=== PATIENT | male | born 1985 | race Caucasian/White ===

== ENCOUNTER 2018-01-18 21:08 | Observation (INO) | payer OTHER ==
[2018-01-18] MEDS ORDERED: Iohexol 240 (50 ml) PO ONE (21:52)
[2018-01-18] MEDS ORDERED: Sodium Chloride 0.9% 1,000 ML IV STA (21:52)
--- NOTE | 2018-01-18 22:18 | ED PDOC ---
HPI: General Adult Time Seen by Provider: 01/18/18 21:28 Chief Complaint (Nursing): GI Problem History Per: Patient History/Exam Limitations: no limitations Onset/Duration Of Symptoms: Days Additional Complaint(s): Obese M with no PMHx presenting with pain to R buttock x 2 days, states he cannot lie on it, denies having abscess in the past, denies trauma. States he felt warm today and had a fever of 101.7. States he also has L sided mid-back/ "kidney" pain but denies urinary symptoms, states he's had it for months and has had negative workup in the past. Past Medical History Reviewed: Historical Data, Nursing Documentation, Vital Signs Vital Signs: Last Vital Signs Temp 98.8 F 01/18/18 21:18 Pulse 128 H 01/18/18 21:18 Resp 18 01/18/18 21:18 BP 132/91 H 01/18/18 21:18 Pulse Ox 99 01/19/18 06:26 - Medical History PMH: No Chronic Diseases - Family History Family History: States: Unknown Family Hx - Allergies Allergies/Adverse Reactions: Allergies Allergy/AdvReac Type Severity Reaction Status Date / Time No Known Allergies Allergy Verified 01/18/18 21:17 Review of Systems ROS Statement: Except As Marked, All Systems Reviewed And Found Negative Constitutional: Positive for: Fever, Chills, Sweats Gastrointestinal: Positive for: Abdominal Pain Physical Exam - Reviewed Nursing Documentation Reviewed: Yes Vital Signs Reviewed: Yes - Physical Exam Appears: Positive for: Well, Non-toxic, Uncomfortable (Sweating) Head Exam: Positive for: ATRAUMATIC, NORMAL INSPECTION, NORMOCEPHALIC Skin: Positive for: Warm. Negative for: Normal Color (R buttock has hardened skin but no erythema, no fluctuance, questionable induration, spans inner lining of buttock to mid-inner buttock on the R) Eye Exam: Positive for: EOMI, Normal appearance, PERRL ENT: Positive for: Normal ENT Inspection Neck: Positive for: Normal, Painless ROM Cardiovascular/Chest: Positive for: Tachycardia Respiratory: Positive for: CNT, Normal Breath Sounds Gastrointestinal/Abdominal: Positive for: Normal Exam, Soft. Negative for: Tenderness, Distended, Guarding Back: Positive for: Normal Inspection, Muscle Spasm (Of left mid-back, paravertebral). Negative for: L CVA Tenderness, R CVA Tenderness Extremity: Positive for: Normal ROM Neurologic/Psych: Positive for: Alert, Oriented - Laboratory Results Result Diagrams: 01/18/18 22:25 01/18/18 22:25 - ECG O2 Sat by Pulse Oximetry: 99 Pulse Ox Interpretation: Normal Medical Decision Making Medical Decision Makin:00 A/P: Obese M presenting with two complaints: buttock pain and persistent L upper -mid back pain -more concerned about buttock pain, unclear if abscess or not, and if so, possible rectal involvement, will get CT with oral and IV contrast -back pain is more likely muscular in nature -patient tachycardic, likely febrile -will get labs, fluids, toradol, and re-eval 02:54 EXAM: CT Abdomen and Pelvis With Intravenous Contrast CLINICAL HISTORY: 32 years old, male; Pain; Other: L flank pain. Rt buttock swelling; Prior surgery; Surgery date: 6+ months; Surgery type: Gallbladder removed; Additional info: L flank pain and r buttock swelling/pain TECHNIQUE: Axial computed tomography images of the abdomen and pelvis with intravenous contrast. All CT scans at this facility use one or more dose reduction techniques, viz.: automated exposure control; ma/kV adjustment per patient size (including targeted exams where dose is matched to indication; i.e. head); or iterative reconstruction technique. Coronal and sagittal reformatted images were created and reviewed. CONTRAST: 98 mL of OMNIPAQUE-300 administered intravenously. COMPARISON: No relevant prior studies available. FINDINGS: Lung bases: No acute findings. Mediastinum: Small hiatal hernia. ABDOMEN: Liver: Fatty infiltration. Few < 0.5 cm lesions. Gallbladder and bile ducts: Cholecystectomy. No significant ductal dilation. Pancreas: No ductal dilation. No mass. Spleen: No splenomegaly. Adrenals: No mass. Kidneys and ureters: No mass. No hydronephrosis. Stomach and bowel: No definite mural thickening. No obstruction. PELVIS: Appendix: Normal caliber. No inflammation. Bladder: Unremarkable. Reproductive: Unremarkable as visualized. ABDOMEN and PELVIS: Intraperitoneal space: No significant fluid collection. No free air. Bones/joints: No acute fracture. Soft tissues: 5.1 x 3.8 x 4.0 cm poorly defined lobulated fluid collection with minimal peripheral enhancement within right perineum adjacent to anus. Mild stranding within adjacent fat. Vasculature: Unremarkable. No aneurysm. Lymph nodes: No pathologically enlarged lymph nodes. IMPRESSION: 1. Findings compatible with right perianal phlegmon/early abscess. Clinical correlation is needed. 2. Liver lesions. For patients with low to average risk of malignancy, no further follow-up is necessary. For patients with high risk of malignancy (known malignancy that can metastasize or other risk factors), recommend follow-up abdominal CT or MR in 6 months. 3. Incidental/non-acute findings are described above. Thank you for allowing us to participate in the care of your patient. Dictated and Authenticated by: Kenneth Kuhn MD 01/19/2018 2:43 AM Eastern Time ([place] & [place]) Patient evaluated by surgery, agrees to admission for ABx and possible wash out in OR. Patient feeling some relief but still having pain. Disposition - Clinical Impression Clinical Impression: Abscess - Patient ED Disposition Is Patient to be Admitted: Yes - Disposition Disposition Time: 04:00 Condition: IMPROVED
[2018-01-18 22:43] LABS: BASO # 0.1 K/uL (0.0-0.2); BASO % 0.5 % (0.0-2.0); EOS % 0.2 % (0.0-4.0); HEMOGLOBIN 13.8 g/dL (12.0-18.0); LYMPH # 2.5 K/uL (1.0-4.3); LYMPH % 14.7 % (20.0-40.0); MEAN CELL VOLUME 83.3 fl (80.0-94.0); MEAN CORPUSCULAR HEMOGLOBIN 27.6 pg (27.0-31.0); MEAN CORPUSCULAR HGB CONC 33.2 g/dL (33.0-37.0); MEAN PLATELET VOLUME 8.4 fl (7.2-11.7); MONO % 5.9 % (0.0-10.0); NEUT # 13.2 K/uL (1.8-7.0); NEUT % 78.7 % (50.0-75.0); RBC 5.01 Mil/uL (4.40-5.90); RED CELL DISTRIBUTION WIDTH 13.9 % (11.5-14.5); WHITE BLOOD COUNT 16.8 K/uL (4.8-10.8)
[2018-01-18] MEDS ORDERED: Iohexol 240 (50 ml) ONE (22:49)
[2018-01-18 23:08] LABS: BLOOD UREA NITROGEN 14 mg/dl (9-20); CALCIUM 9.4 mg/dL (8.4-10.2); GFR AFRICAN-AMERICAN > 60; GFR NON-AFRICAN AMERICAN > 60
[2018-01-19] MEDS ORDERED: Iohexol 300 100 ML IJ ONE (01:48)
--- NOTE | 2018-01-19 02:44 | CT ---
EXAM: CT Abdomen and Pelvis With Intravenous Contrast CLINICAL HISTORY: 32 years old, male; Pain; Other: L flank pain. Rt buttock swelling; Prior surgery; Surgery date: 6+ months; Surgery type: Gallbladder removed; Additional info: L flank pain and r buttock swelling/pain TECHNIQUE: Axial computed tomography images of the abdomen and pelvis with intravenous contrast. All CT scans at this facility use one or more dose reduction techniques, viz.: automated exposure control; ma/kV adjustment per patient size (including targeted exams where dose is matched to indication; i.e. head); or iterative reconstruction technique. Coronal and sagittal reformatted images were created and reviewed. CONTRAST: 98 mL of OMNIPAQUE-300 administered intravenously. COMPARISON: No relevant prior studies available. FINDINGS: Lung bases: No acute findings. Mediastinum: Small hiatal hernia. ABDOMEN: Liver: Fatty infiltration. Few < 0.5 cm lesions. Gallbladder and bile ducts: Cholecystectomy. No significant ductal dilation. Pancreas: No ductal dilation. No mass. Spleen: No splenomegaly. Adrenals: No mass. Kidneys and ureters: No mass. No hydronephrosis. Stomach and bowel: No definite mural thickening. No obstruction. PELVIS: Appendix: Normal caliber. No inflammation. Bladder: Unremarkable. Reproductive: Unremarkable as visualized. ABDOMEN and PELVIS: Intraperitoneal space: No significant fluid collection. No free air. Bones/joints: No acute fracture. Soft tissues: 5.1 x 3.8 x 4.0 cm poorly defined lobulated fluid collection with minimal peripheral enhancement within right perineum adjacent to anus. Mild stranding within adjacent fat. Vasculature: Unremarkable. No aneurysm. Lymph nodes: No pathologically enlarged lymph nodes. IMPRESSION: 1. Findings compatible with right perianal phlegmon/early abscess. Clinical correlation is needed. 2. Liver lesions. For patients with low to average risk of malignancy, no further follow-up is necessary. For patients with high risk of malignancy (known malignancy that can metastasize or other risk factors), recommend follow-up abdominal CT or MR in 6 months. 3. Incidental/non-acute findings are described above.
[2018-01-19 04:18] LABS: URINE BILIRUBIN NEGATIVE (NEGATIVE); URINE BLOOD NEGATIVE (NEGATIVE); URINE CLARITY CLEAR (Clear); URINE COLOR YELLOW (YELLOW); URINE GLUCOSE (UA) NEG (Normal); URINE LEUKOCYTE ESTERASE NEG Leu/uL (Negative); URINE PROTEIN NEGATIVE (NEGATIVE); URINE UROBILINOGEN 0.2-1.0 mg/dL (0.2-1.0)
--- NOTE | 2018-01-19 05:49 | CP.PCM.HP ---
History of Present Illness - History of Present Illness History of Present Illness: General Surgery H&P for Dr. Varma This is a morbidly obese 32M with no PMH and a PSH of lap sidney who presents with right sided anal/gluteal pain at home when he sits since however since that time that pain has gotten worse. He reports that he felt a lump when palpating his anus. He denies any discharge per rectum. This is the first time it has happened, nothing makes it better and nothing makes it worse. He reports a fever yesterday of 101.[address] in the ED shows a right sided perianal early abscess. PMH: none PSH: lap sidney ALL: nkda Social: denies tobacco, etoh or drugs Present on Admission - Present on Admission Any Indicators Present on Admission: No Review of Systems - Review of Systems All systems: reviewed and no additional remarkable complaints except - Constitutional Constitutional: Fever - Cardiovascular Cardiovascular: absent: Chest Pain, Dyspnea - Respiratory Respiratory: absent: Dyspnea, Dyspnea on Exertion - Gastrointestinal Gastrointestinal: Loose Stools. absent: Hematochezia, Melena, Nausea, Temesmus - Genitourinary Genitourinary: absent: Difficulty Urinating, Dysuria Past Patient History - Past Social History Smoking Status: Never Smoked - PSYCHIATRIC Hx Substance Use: No Meds Allergies/Adverse Reactions: Allergies Allergy/AdvReac Type Severity Reaction Status Date / Time No Known Allergies Allergy Verified 01/18/18 21:17 Physical Exam - Constitutional Appears: Non-toxic, No Acute Distress - Head Exam Head Exam: ATRAUMATIC, NORMOCEPHALIC - Eye Exam Eye Exam: EOMI, Normal appearance - ENT Exam ENT Exam: Mucous Membranes Moist, Normal Exam - Respiratory Exam Respiratory Exam: NORMAL BREATHING PATTERN - Cardiovascular Exam Cardiovascular Exam: REGULAR RHYTHM - GI/Abdominal Exam GI & Abdominal Exam: Soft. absent: Distended, Guarding, Hernia, Rebound, Rigid - Rectal Exam Rectal Exam: NORMAL INSPECTION Additional comments: Normal rectal exam with slight right sided firmness in the gluteal cleft without overlaying skin changes - Neurological Exam Neurological exam: Alert, Oriented x3 - Skin Skin Exam: Dry, Intact Results - Vital Signs Recent Vital Signs: Last Vital Signs Temp 98.8 F 01/18/18 21:18 Pulse 128 H 01/18/18 21:18 Resp 18 01/18/18 21:18 BP 132/91 H 01/18/18 21:18 Pulse Ox 99 01/18/18 22:23 - Labs Result Diagrams: 01/18/18 22:25 01/18/18 22:25 Labs: Laboratory Results - last 24 hr 01/18/18 01/18/18 01/18/18 22:25 22:25 22:25 WBC 16.8 H RBC 5.01 Hgb 13.8 Hct 41.7 MCV 83.3 MCH 27.6 MCHC 33.2 RDW 13.9 Plt Count 329 MPV 8.4 Neut % (Auto) 78.7 H Lymph % (Auto) 14.7 L [place] % (Auto) 5.9 Eos % (Auto) 0.2 Baso % (Auto) 0.5 Neut # (Auto) 13.2 H Lymph # (Auto) 2.5 [place] # (Auto) 1.0 H Eos # (Auto) 0.0 Baso # (Auto) 0.1 Sodium 142 Potassium 4.2 Chloride 98 Carbon Dioxide 26 Anion Gap 22 H BUN 14 Creatinine 1.1 Est GFR ( Amer) > 60 Est GFR (Non-Af Amer) > 60 Random Glucose 101 Lactic Acid 1.5 Calcium 9.4 Urine Color Urine Clarity Urine pH Ur Specific [place] Urine Protein Urine Glucose (UA) Urine Ketones Urine Blood Urine Nitrate Urine Bilirubin Urine Urobilinogen Ur Leukocyte Esterase Urine RBC (Auto) Urine Microscopic WBC 01/19/18 04:11 WBC RBC Hgb Hct MCV MCH MCHC RDW Plt Count MPV Neut % (Auto) Lymph % (Auto) [place] % (Auto) Eos % (Auto) Baso % (Auto) Neut # (Auto) Lymph # (Auto) [place] # (Auto) Eos # (Auto) Baso # (Auto) Sodium Potassium Chloride Carbon Dioxide Anion Gap BUN Creatinine Est GFR ( Amer) Est GFR (Non-Af Amer) Random Glucose Lactic Acid Calcium Urine Color Yellow Urine Clarity Clear Urine pH 6.0 Ur Specific [place] > 1.060 H Urine Protein Negative Urine Glucose (UA) Neg Urine Ketones Negative Urine Blood Negative Urine Nitrate Negative Urine Bilirubin Negative Urine Urobilinogen 0.2-1.0 Ur Leukocyte Esterase Neg Urine RBC (Auto) 1 Urine Microscopic WBC 1 Assessment & Plan - Assessment and Plan (Free Text) Assessment: 32M with early perianal abscess Admit to surgical service for 24 observation NPO IV ABX SCD D/W Dr. Avani Soto PGY2
[2018-01-19] MEDS ORDERED: Dextrose 5%/0.45% NS 1,000 ML IV SCH (06:00)
[2018-01-19 07:40] LABS: INR 1.3 (0.9-1.2); PROTHROMBIN TIME 13.9 Seconds (9.8-13.1)
[2018-01-19] MEDS ORDERED: Piperacillin/Tazobact 3.375 GM in Sodium Chloride 0.9% 100 ML IVPB SCH (09:00)
[2018-01-19] MEDS: Piperacillin/Tazobact 3.375 GM in Sodium Chloride 0.9% 100 ML IVPB SCH ×3 (10:18→21:03)
[2018-01-19] MEDS: Sodium Chloride 0.9% 1,000 ML IV SCH ×2 (10:19→23:35)
[2018-01-20] MEDS: Piperacillin/Tazobact 3.375 GM in Sodium Chloride 0.9% 100 ML IVPB SCH ×5 (03:34→21:44)
[2018-01-20] MEDS: Sodium Chloride 0.9% 1,000 ML IV SCH ×3 (06:57→08:17)
[2018-01-20 08:25] LABS: BASO # 0.1 K/uL (0.0-0.2); BASO % 0.8 % (0.0-2.0); EOS % 0.3 % (0.0-4.0); HEMOGLOBIN 12.7 g/dL (12.0-18.0); LYMPH # 2.4 K/uL (1.0-4.3); LYMPH % 16.3 % (20.0-40.0); MEAN CELL VOLUME 82.6 fl (80.0-94.0); MEAN CORPUSCULAR HEMOGLOBIN 27.7 pg (27.0-31.0); MEAN CORPUSCULAR HGB CONC 33.5 g/dL (33.0-37.0); MEAN PLATELET VOLUME 7.9 fl (7.2-11.7); MONO # 1.2 K/uL (0.0-0.8); MONO % 8.3 % (0.0-10.0); NEUT # 10.7 K/uL (1.8-7.0); NEUT % 74.3 % (50.0-75.0); NRBC % 0.1 % (0.0-0.0); RBC 4.59 Mil/uL (4.40-5.90); RED CELL DISTRIBUTION WIDTH 13.9 % (11.5-14.5); WHITE BLOOD COUNT 14.4 K/uL (4.8-10.8)
[2018-01-20 13:51] LABS: ALB/GLOB RATIO 0.9 (1.0-2.1); ALT/SGPT 98 U/L (21-72); AST/SGOT 49 U/L (17-59); BLOOD UREA NITROGEN 9 mg/dl (9-20); CALCIUM 9.3 mg/dL (8.4-10.2); GFR AFRICAN-AMERICAN > 60; GFR NON-AFRICAN AMERICAN > 60
[2018-01-20] MEDS ORDERED: Lactated Ringer's 1,000 ML IV ONE ×2 (14:00→15:53)
[2018-01-20] MEDS ORDERED: Lidocaine 2% Inj (20ml) ONE (14:18)
[2018-01-20] MEDS ORDERED: Chlorhexidine Gluconate 2OZ GEL TP ONE (14:27)
[2018-01-20] MEDS: Bupivacaine 0.5% Inj(30mL) ONE ×2 (14:35→16:15)
[2018-01-20] MEDS: Lidocaine 2% w Epi 1:100,000 Inj IJ ONE ×2 (14:35→16:15)
[2018-01-20] MEDS ORDERED: Propofol 10 mg/ml Inj (20 ML) ONE (15:45)
[2018-01-20] MEDS ORDERED: Methylene Blue 10 mg/mL(10ml) IV ONE (15:45)
[2018-01-20] MEDS ORDERED: Succinylcholine 200 mg/10 ml Inj IV ONE (15:46)
[2018-01-20] MEDS ORDERED: Lidocaine 4% (Laryng-O-Jet) Kit MM ONE (15:46)
[2018-01-20] MEDS ORDERED: Midazolam 2 MG/2 ML VIAL ONE (15:58)
[2018-01-20] MEDS ORDERED: Rocuronium 10 mg/ml (5 ml) ONE (16:10)
[2018-01-20] MEDS ORDERED: Sevoflurane - Inhalation Anesthetic Liq (250 ml) ONE (16:26)
--- NOTE | 2018-01-20 16:52 | PCM.SURG1 ---
Surgeon's Initial Post Op Note - Surgeon's Notes Surgeon: Dr. Varma Collections Technician: Jluis PGY2, Ethan PGY1 Type of Anesthesia: General Endo, Local Anesthesia Administered By: Dr. Szymanski Pre-Operative Diagnosis: Perianal abscess Operative Findings: Perianal abscess Post-Operative Diagnosis: Perianal abscess Operation Performed: Incision & Drainage of perianal abscess with irrigation and packing Specimen/Specimens Removed: abscess culture Estimated Blood Loss: EBL {In ML}: 20 Blood Products Given: N/A Drains Used: No Drains Post-Op Condition: Good Date of Surgery/Procedure: 01/20/18 Time of Surgery/Procedure: 04:00
[2018-01-20] MEDS ORDERED: HYDROmorphone 0.5 mg/0.5 ml ISec IVP PRN (16:55)
[2018-01-20] MEDS: Lactated Ringer's 1,000 ML IV SCH (23:58)
[2018-01-21] MEDS: Lactated Ringer's 1,000 ML IV SCH ×2 (03:39→13:04)
[2018-01-21] MEDS: Piperacillin/Tazobact 3.375 GM in Sodium Chloride 0.9% 100 ML IVPB SCH ×2 (03:40→09:07)
[2018-01-21 05:16] VITALS: TEMP 98.7
[2018-01-21 07:47] VITALS: BP 137/78; PULSE 88; RESP 20; O2SAT 97
[2018-01-21 11:39] LABS: BASO # 0.1 K/uL (0.0-0.2); BASO % 0.5 % (0.0-2.0); EOS # 0.1 K/uL (0.0-0.7); EOS % 0.4 % (0.0-4.0); LYMPH # 2.3 K/uL (1.0-4.3); LYMPH % 17.3 % (20.0-40.0); MEAN CELL VOLUME 82.9 fl (80.0-94.0); MEAN CORPUSCULAR HEMOGLOBIN 27.6 pg (27.0-31.0); MEAN CORPUSCULAR HGB CONC 33.3 g/dL (33.0-37.0); MEAN PLATELET VOLUME 7.9 fl (7.2-11.7); MONO % 7.6 % (0.0-10.0); NEUT # 9.6 K/uL (1.8-7.0); NEUT % 74.2 % (50.0-75.0); RBC 4.73 Mil/uL (4.40-5.90); RED CELL DISTRIBUTION WIDTH 14.1 % (11.5-14.5)
[2018-01-21 11:59] LABS: BLOOD UREA NITROGEN 12 mg/dl (9-20); GFR AFRICAN-AMERICAN > 60; GFR NON-AFRICAN AMERICAN > 60
--- NOTE | 2018-01-21 12:26 | CP.PCM.DIS ---
Provider - Provider Date of Admission: 01/19/18 05:50 Attending physician: Will Varma MD Time Spent in preparation of Discharge (in minutes): 20 Hospital Course - Lab Results Lab Results: Micro Results 01/18/18 23:12 Blood Blood Culture - Preliminary NO GROWTH AFTER 48 HOURS Most Recent Lab Values WBC 13.0 K/uL (4.8-10.8) H 01/21/18 11:30 RBC 4.73 Mil/uL (4.40-5.90) 01/21/18 11:30 Hgb 13.0 g/dL (12.0-18.0) 01/21/18 11:30 Hct 39.2 % (35.0-51.0) 01/21/18 11:30 MCV 82.9 fl (80.0-94.0) 01/21/18 11:30 MCH 27.6 pg (27.0-31.0) 01/21/18 11:30 MCHC 33.3 g/dL (33.0-37.0) 01/21/18 11:30 RDW 14.1 % (11.5-14.5) 01/21/18 11:30 Plt Count 320 K/uL (130-400) 01/21/18 11:30 MPV 7.9 fl (7.2-11.7) 01/21/18 11:30 Neut % (Auto) 74.2 % (50.0-75.0) 01/21/18 11:30 Lymph % (Auto) 17.3 % (20.0-40.0) L 01/21/18 11:30 [place] % (Auto) 7.6 % (0.0-10.0) 01/21/18 11:30 Eos % (Auto) 0.4 % (0.0-4.0) 01/21/18 11:30 Baso % (Auto) 0.5 % (0.0-2.0) 01/21/18 11:30 Neut # (Auto) 9.6 K/uL (1.8-7.0) H 01/21/18 11:30 Lymph # (Auto) 2.3 K/uL (1.0-4.3) 01/21/18 11:30 [place] # (Auto) 1.0 K/uL (0.0-0.8) H 01/21/18 11:30 Eos # (Auto) 0.1 K/uL (0.0-0.7) 01/21/18 11:30 Baso # (Auto) 0.1 K/uL (0.0-0.2) 01/21/18 11:30 PT 13.9 Seconds (9.8-13.1) H 01/19/18 06:40 INR 1.3 (0.9-1.2) H 01/19/18 06:40 Sodium 140 mmol/l (132-148) 01/21/18 11:30 Potassium 4.3 MMOL/L (3.6-5.0) 01/21/18 11:30 Chloride 101 mmol/L (98-107) 01/21/18 11:30 Carbon Dioxide 28 mmol/L (22-30) 01/21/18 11:30 Anion Gap 15 (10-20) 01/21/18 11:30 BUN 12 mg/dl (9-20) 01/21/18 11:30 Creatinine 1.1 mg/dl (0.8-1.5) 01/21/18 11:30 Est GFR ( Amer) > 60 01/21/18 11:30 Est GFR (Non-Af Amer) > 60 01/21/18 11:30 Random Glucose 109 mg/dL (75-110) 01/21/18 11:30 Lactic Acid 1.5 MMOL/L (0.7-2.1) 01/18/18 22:25 Calcium 9.0 mg/dL (8.4-10.2) 01/21/18 11:30 Total Bilirubin 1.2 mg/dl (0.2-1.3) 01/20/18 13:18 AST 49 U/L (17-59) 01/20/18 13:18 ALT 98 U/L (21-72) H 01/20/18 13:18 Alkaline Phosphatase 138 U/L (38-126) H 01/20/18 13:18 Total Protein 8.3 G/DL (6.3-8.2) H 01/20/18 13:18 Albumin 4.0 g/dL (3.5-5.0) 01/20/18 13:18 Globulin 4.3 gm/dL (2.2-3.9) H 01/20/18 13:18 Albumin/Globulin Ratio 0.9 (1.0-2.1) L 01/20/18 13:18 Urine Color Yellow (YELLOW) 01/19/18 04:11 Urine Clarity Clear (Clear) 01/19/18 04:11 Urine pH 6.0 (5.0-8.0) 01/19/18 04:11 Ur Specific [place] > 1.060 (1.003-1.030) H 01/19/18 04:11 Urine Protein Negative mg/dL (NEGATIVE) 01/19/18 04:11 Urine Glucose (UA) Neg mg/dL (Normal) 01/19/18 04:11 Urine Ketones Negative mg/dL (NEGATIVE) 01/19/18 04:11 Urine Blood Negative (NEGATIVE) 01/19/18 04:11 Urine Nitrate Negative (NEGATIVE) 01/19/18 04:11 Urine Bilirubin Negative (NEGATIVE) 01/19/18 04:11 Urine Urobilinogen 0.2-1.0 mg/dL (0.2-1.0) 01/19/18 04:11 Ur Leukocyte Esterase Neg [place]/uL (Negative) 01/19/18 04:11 Urine RBC (Auto) 1 /hpf (0-3) 01/19/18 04:11 Urine Microscopic WBC 1 /hpf (0-5) 01/19/18 04:11 - Hospital Course Hospital Course: 01/19: This is a morbidly obese 32M with no PMH and a PSH of lap sidney who presents with right sided anal/gluteal pain at home when he sits since however since that time that pain has gotten worse. He reports that he felt a lump when palpating his anus. He denies any discharge per rectum. This is the first time it has happened, nothing makes it better and nothing makes it worse. He reports a fever yesterday of 101.[address] in the ED shows a right sided perianal early abscess. 01/20: Patient s/p I&D of perianal abscess. Tolerated procedure well, with no intraoperative complications. 01/21: Iodoform packing removed. Wound area is nice and pink, no purulent discharge noted. Wound packed with 1/2" iodoform gauze. Discharge Exam - Head Exam Head Exam: ATRAUMATIC, NORMAL INSPECTION, NORMOCEPHALIC - Eye Exam Eye Exam: EOMI, Normal appearance - ENT Exam ENT Exam: Mucous Membranes Moist - Respiratory Exam Respiratory Exam: NORMAL BREATHING PATTERN - Cardiovascular Exam Cardiovascular Exam: +S1, +S2 - Neurological Exam Neurological exam: Alert, Oriented x3 - Psychiatric Exam Psychiatric exam: Normal Mood - Skin Skin Exam: Dry, Intact, Normal Color, Warm Discharge Plan - Follow Up Plan Condition: IMPROVED Disposition: HOME/ ROUTINE Instructions: Abscess Incision and Drainage (DC), Anal Abscess and Fistula (DC) , Abscess (GEN) Additional Instructions: follow up with your primary MD 7-10 days Follow up with Dr. Varma in 10 days Finish antibiotic course Pack with 1/2" inch iodoform packing BID Apply 4x4 dressings and paper tape Visiting nurse to do packing changes Keep area clean and dry Referrals: Saad Ortega MD, PhD [Family Provider] -
--- NOTE | 2018-01-31 03:12 | OP ---
PROCEDURE DATE: 01/20/2018 PREOPERATIVE DIAGNOSIS: Ischiorectal abscess at the 10 o'clock position. POSTOPERATIVE DIAGNOSIS: Ischiorectal abscess at the 10 o'clock position. PROCEDURES: 1. Examination under anesthesia. 2. Anoscopy. 3. Rigid sigmoidoscopy. 4. Incision and drainage at 10 o'clock ischiorectal abscess. 5. Excisional debridement of the right ischiorectal abscess cavity. SURGEON: Will Varma MD TYPE OF ANESTHESIA: General endotracheal. DESCRIPTION OF PROCEDURE: The patient was brought to the operating room and placed on the operating room table in supine position. After induction of general endotracheal anesthesia, Venodyne boots were placed in the both legs and prophylactic antibiotics were given. The patient's position was changed to lithotomy using Saurabh stirrups and the peritoneal area was prepped and draped in the usual sterile fashion. Examination under anesthesia was performed and large ischiorectal abscess on the right side at the 10 o'clock position was identified. Anoscopy followed by rigid sigmoidoscopy was performed to ensure there was no communication within the abscess cavity in the rectum. Upon confirming that the area with approximately 5 cm from the anal bridge at 10 o'clock position, position was infiltrated with local anesthetic and incised with #10 blade. The incision was brought down to the subcutaneous tissue with Bovie electrocautery and continued until this large ischiorectal abscess was accessed and approximately 15 mL of foul smelling grayish pus was evacuated. The cavity was probed with index finger were broken in order to create a unified cavity. The cavity was irrigated with hydrogen peroxide and Betadine mix. The necrotic areas were debrided generously until healthy tissue with good blood supply was encountered. A 2-inch iodoform gauze was used to pack the wound and sterile dressings were applied. At the end of the surgery, the counts of instruments, gauze, and needles were correct x2. The patient tolerated the surgery well and was transferred in stable condition to recovery room. Will Varma MD
== END 2018-01-21 15:50 | disposition home or self-care (01) ==
LOC: H.ER 21:08 → H.ERHOLD 01-19 05:50 → H.MEDSURG1 01-19 07:05
PROVIDERS: ADMIT Specialist; ATTEND Specialist
DX: K61.3 Ischiorectal abscess (principal); E66.01 Morbid (severe) obesity due to excess calories; Z68.39 Body mass index [BMI] 39.0-39.9, adult
CPT/HCPCS: 36415; 46040; 74177; 80048; 80053; 81003; 83605; 85025; 85610; 87040; 87070; 96361; 96365; 96366; 96367; 96375; 96376; 99284; G0378; J0330; J1885; J2001; J2250; J2270; J2405; J2543; J2704; J2765; J3010; J7030; J7040; J7042; J7120; Q9966; Q9967

== ENCOUNTER 2018-02-10 17:18 | Emergency (ER) | payer OTHER ==
[2018-02-10 17:48] VITALS: O2SAT 99
[2018-02-10] MEDS ORDERED: Sodium Chloride 0.9% 1,000 ML IV STA (18:20)
--- NOTE | 2018-02-10 19:09 | ED PDOC ---
HPI: Wound Care - HPI Time Seen by Provider: 02/10/18 17:59 Chief Complaint (Nursing): Abnormal Skin Integrity Chief Complaint (Provider): wound check History Per: Patient, Other (girlfriend) Exam Limitations: no limitations Onset/Duration Of Symptoms: Days (4-5), Waxing/Waning Location Of Injury: Right: Buttock Quality Of Symptoms: Swollen, Draining Severity: Moderate Additional Complaint(s): 32yo male about 3 wks s/p I&D R perirectal abscess, presents for wound check, unable to see surgeon yet for followup. Notes mild nausea and pain/ bloody drainage to wound. Has a boarding machine operator seeing him at home weekly and girlfriend doing daily dressing changes. Last several days noted more bloody drainage than baseline. He finished oral Abx several days ago. Past Medical History Reviewed: Historical Data, Nursing Documentation, Vital Signs Vital Signs: Last Vital Signs Temp 99.6 F 02/10/18 17:44 Pulse 125 H 02/10/18 17:44 Resp 18 02/10/18 17:44 BP 123/102 H 02/10/18 17:44 Pulse Ox 99 02/10/18 17:44 - Medical History PMH: No Chronic Diseases Denies: Chronic Kidney Disease - Surgical History Surgical History: Cholecystectomy Other surgeries: kris rectal abscess I&D - Family History Family History: States: Unknown Family Hx - Living Arrangements Living Arrangements: With Friends/Others - Home Medications Home Medications: Ambulatory Orders Medication Instructions Recorded No Known Home Med 01/19/18 - Allergies Allergies/Adverse Reactions: Allergies Allergy/AdvReac Type Severity Reaction Status Date / Time No Known Allergies Allergy Verified 01/18/18 21:17 Review of Systems Constitutional: Positive for: Malaise. Negative for: Fever Cardiovascular: Negative for: Chest Pain Respiratory: Negative for: Cough Gastrointestinal: Positive for: Nausea, Rectal Pain. Negative for: Abdominal Pain Genitourinary Male: Negative for: Dysuria Musculoskeletal: Negative for: Neck Pain Neurological: Positive for: Dizziness. Negative for: Weakness, Numbness Physical Exam - Reviewed Nursing Documentation Reviewed: Yes Vital Signs Reviewed: Yes - Physical Exam Appears: Positive for: Well, Non-toxic Head Exam: Positive for: ATRAUMATIC Gastrointestinal/Abdominal: Negative for: Tenderness, Guarding Rectal: Positive for: Other (I&D incision 4cm clean/intact, beefy red tissue minimal discharge R inner buttock) - ECG O2 Sat by Pulse Oximetry: 99 Medical Decision Making Medical Decision Making: check basic labs, IVF bolus and antiemetic for symptoms surgery resident to evalute wound in ED Disposition - Clinical Impression Clinical Impression: Wound check, abscess, Nausea - Patient ED Disposition Is Patient to be Admitted: Transfer of Care - Disposition Disposition: Transfer of Care Disposition Time: 19:11 Condition: STABLE Patient Signed Over To: Bon Patino Handoff Comments: pending labs and surgery eval, katieo
[2018-02-10 19:11] LABS: BASO % 0.3 % (0.0-2.0); EOS # 0.1 K/uL (0.0-0.7); EOS % 0.9 % (0.0-4.0); HEMOGLOBIN 14.7 g/dL (12.0-18.0); LYMPH # 2.4 K/uL (1.0-4.3); LYMPH % 26.3 % (20.0-40.0); MEAN CELL VOLUME 82.7 fl (80.0-94.0); MEAN CORPUSCULAR HEMOGLOBIN 28.2 pg (27.0-31.0); MEAN CORPUSCULAR HGB CONC 34.1 g/dL (33.0-37.0); MEAN PLATELET VOLUME 8.5 fl (7.2-11.7); MONO # 0.7 K/uL (0.0-0.8); MONO % 7.1 % (0.0-10.0); NEUT # 6.1 K/uL (1.8-7.0); NEUT % 65.4 % (50.0-75.0); NRBC % 0.2 % (0.0-0.0); RBC 5.2 Mil/uL (4.40-5.90); RED CELL DISTRIBUTION WIDTH 14.2 % (11.5-14.5); WHITE BLOOD COUNT 9.3 K/uL (4.8-10.8)
--- NOTE | 2018-02-10 19:40 | ED PDOC ---
- Laboratory Results Result Diagrams: 02/10/18 19:08 02/10/18 19:08 - ECG O2 Sat by Pulse Oximetry: 99 (RA) Pulse Ox Interpretation: Normal Medical Decision Making Medical Decision Making: Time: 1899 Patient signed out to me by Dr. Henderson pending labs and reevaluation. 2100 Patient was seen by surgical garment assembler and cleared for outpatient followup. Instructions on proper wound care were given. Patient's vitals improved, well appearing upon discharge. Tolerating PO. Scribe Attestation: Documented by Norberto López, acting as a scribe for Bon Patino MD Provider Scribe Attestation: All medical record entries made by the Scribe were at my direction and personally dictated by me. I have reviewed the chart and agree that the record accurately reflects my personal performance of the history, physical exam, medical decision making, and the department course for this patient. I have also personally directed, reviewed, and agree with the discharge instructions and disposition. Disposition - Clinical Impression Clinical Impression: Wound check, abscess, Nausea - POA Present On Arrival: None - Disposition Referrals: Will Varma MD [Staff Provider] - Saad Ortega MD, PhD [Family Provider] - Disposition: Routine/Home Disposition Time: 21:08 Condition: IMPROVED Instructions: Surgical Wound (DC), Wound Care (DC) Forms: Rowl (Turkmen)
[2018-02-10 19:45] LABS: ALB/GLOB RATIO 0.9 (1.0-2.1); ALBUMIN 4.5 g/dL (3.5-5.0); ALT/SGPT 78 U/L (21-72); AST/SGOT 52 U/L (17-59); BLOOD UREA NITROGEN 16 mg/dl (9-20); GFR AFRICAN-AMERICAN > 60; GFR NON-AFRICAN AMERICAN > 60
[2018-02-10 20:36] VITALS: RESP 16
--- NOTE | 2018-02-10 21:19 | CP.PCM.CON ---
History of Present Illness - History of Present Illness History of Present Illness: General Surgery Consult 32M who is 3 weeks S/P I&D of perianal abscess presents to the ED c/o increased bleeding with dressing/packing changes the prior 2 times. Pts girlfriend has been doing the packing changes. Reports no odor or pus from wound and that it seems to be getting smaller as she cannot pack the wound like before. Denies F/C , N/V/D/C, abd pain, pain with BM, melena, hematochezia. PMH: none PSH: lap sidney, I&D of perianal abscess SH: Denies tobacco, etoh or drugs FH: non-contributory All: NKDA Meds: Denies Review of Systems - Review of Systems All systems: reviewed and no additional remarkable complaints except (as per HPI ) Past Patient History - Past Medical History & Family History Past Medical History?: No - Past Social History Smoking Status: Never Smoked - CARDIAC Hx Cardiac Disorders: No - PULMONARY Hx Respiratory Disorders: No - NEUROLOGICAL Hx Neurological Disorder: No - HEENT Hx HEENT Problems: No - RENAL Hx Chronic Kidney Disease: No - ENDOCRINE/METABOLIC Hx Endocrine Disorders: No - HEMATOLOGICAL/ONCOLOGICAL Hx Blood Disorders: No - INTEGUMENTARY Hx Dermatological Problems: No - MUSCULOSKELETAL/RHEUMATOLOGICAL Hx Musculoskeletal Disorders: No Hx Falls: No - GASTROINTESTINAL Hx Gastrointestinal Disorders: No - GENITOURINARY/GYNECOLOGICAL Hx Genitourinary Disorders: No - PSYCHIATRIC Hx Substance Use: No - SURGICAL HISTORY Hx Cholecystectomy: Yes - ANESTHESIA Hx Anesthesia: Yes Hx Anesthesia Reactions: No Meds Allergies/Adverse Reactions: Allergies Allergy/AdvReac Type Severity Reaction Status Date / Time No Known Allergies Allergy Verified 01/18/18 21:17 Physical Exam - Constitutional Appears: Non-toxic, No Acute Distress - Head Exam Head Exam: ATRAUMATIC, NORMOCEPHALIC - Eye Exam Eye Exam: EOMI. absent: Scleral icterus - ENT Exam ENT Exam: Mucous Membranes Moist Additional comments: trachea midline - Neck Exam Neck exam: Positive for: Full Rom - Respiratory Exam Respiratory Exam: NORMAL BREATHING PATTERN. absent: Respiratory Distress - Cardiovascular Exam Cardiovascular Exam: RRR, +S1, +S2 - GI/Abdominal Exam GI & Abdominal Exam: Soft. absent: Distended, Tenderness - Rectal Exam Additional comments: R gluteal incision healing well, good granulation tissue. no active bleeding. No odor or pus seen. - Extremities Exam Extremities exam: Positive for: normal capillary refill. Negative for: pedal edema - Neurological Exam Neurological exam: Alert, Oriented x3 - Psychiatric Exam Psychiatric exam: Normal Affect, Normal Mood - Skin Skin Exam: Dry, Warm Results - Vital Signs Recent Vital Signs: Last Vital Signs Temp 98.4 F 02/10/18 20:36 Pulse 88 02/10/18 20:36 Resp 16 02/10/18 20:36 BP 127/80 02/10/18 20:36 Pulse Ox 99 02/10/18 21:08 - Labs Result Diagrams: 02/10/18 19:08 02/10/18 19:08 Labs: Laboratory Results - last 24 hr 02/10/18 02/10/18 19:08 19:08 WBC 9.3 RBC 5.20 Hgb 14.7 Hct 43.0 MCV 82.7 MCH 28.2 MCHC 34.1 RDW 14.2 Plt Count 338 MPV 8.5 Neut % (Auto) 65.4 Lymph % (Auto) 26.3 [place] % (Auto) 7.1 Eos % (Auto) 0.9 Baso % (Auto) 0.3 Neut # (Auto) 6.1 Lymph # (Auto) 2.4 [place] # (Auto) 0.7 Eos # (Auto) 0.1 Baso # (Auto) 0.0 Sodium 144 Potassium 4.9 Chloride 99 Carbon Dioxide 30 Anion Gap 20 BUN 16 Creatinine 1.1 Est GFR ( Amer) > 60 Est GFR (Non-Af Amer) > 60 Random Glucose 101 Calcium 10.0 Total Bilirubin 0.5 AST 52 ALT 78 H D Alkaline Phosphatase 122 Total Protein 9.2 H Albumin 4.5 Globulin 4.7 H Albumin/Globulin Ratio 0.9 L Assessment & Plan - Assessment and Plan (Free Text) Assessment: 32M POD #21 s/p Incision & Drainage of perianal abscess Plan: Follow up with Dr. Varma in his office. Wet dressing prior to removal to reduce irritation of granulation tissue that is causing extra bleeding. Use less packing each day, do not force it in. D/W Dr. Avani Torres PGY4
[2018-02-10 22:11] VITALS: BP 120/76; PULSE 92; TEMP 98.2
== END 2018-02-10 21:40 | disposition home or self-care (01) ==
LOC: H.ER 17:18
DX: Z48.00 Encounter for change or removal of nonsurgical wound dressing (principal); K61.0 Anal abscess
CPT/HCPCS: 80053; 85025; 99283; J7040

== ENCOUNTER 2018-05-14 22:46 | Emergency (ER) | payer OTHER ==
[2018-05-14 22:50] VITALS: BMI 38.0
[2018-05-14] MEDS ORDERED: Sodium Chloride 0.9% 1,000 ML IV STA (23:31)
[2018-05-15 00:20] LABS: BASO # 0.1 K/uL (0.0-0.2); BASO % 0.9 % (0.0-2.0); EOS # 0.1 K/uL (0.0-0.7); HEMOGLOBIN 14.4 g/dL (12.0-18.0); LYMPH # 2.6 K/uL (1.0-4.3); LYMPH % 23.8 % (20.0-40.0); MEAN CELL VOLUME 81.7 fl (80.0-94.0); MEAN CORPUSCULAR HEMOGLOBIN 27.1 pg (27.0-31.0); MEAN CORPUSCULAR HGB CONC 33.1 g/dL (33.0-37.0); MEAN PLATELET VOLUME 8.3 fl (7.2-11.7); MONO # 0.6 K/uL (0.0-0.8); MONO % 5.8 % (0.0-10.0); NEUT # 7.4 K/uL (1.8-7.0); NEUT % 68.5 % (50.0-75.0); RBC 5.3 Mil/uL (4.40-5.90); RED CELL DISTRIBUTION WIDTH 15.1 % (11.5-14.5); WHITE BLOOD COUNT 10.7 K/uL (4.8-10.8)
[2018-05-15 00:31] LABS: ALB/GLOB RATIO 1.1 (1.0-2.1); ALBUMIN 4.4 g/dL (3.5-5.0); ALT/SGPT 39 U/L (21-72); AST/SGOT 29 U/L (17-59); BLOOD UREA NITROGEN 11 mg/dl (9-20); CALCIUM 9.3 mg/dL (8.4-10.2); GFR NON-AFRICAN AMERICAN > 60
--- NOTE | 2018-05-15 01:49 | ED PDOC ---
HPI: General Adult Time Seen by Provider: 05/14/18 23:01 Chief Complaint (Nursing): Flu-like Symptoms Chief Complaint (Provider): lightheaded, generalized weakness History Per: Patient History/Exam Limitations: no limitations Onset/Duration Of Symptoms: Days (3), Waxing/Waning Additional Complaint(s): 32 y/o male brought in by EMS for evaluation of periods of generalized weakness with lightheadedness x 3 days. Patient states symptoms random onset, states he feels as if he is going to faint when it happens, but does not. Patient reports last episode happened while showering tonight, followed by palpitations. Denies fever, headache, dizziness, nausea/vomiting, chest pain, shortness of breath, abdominal pain, leg pain/swelling. Past Medical History Reviewed: Historical Data, Nursing Documentation, Vital Signs Vital Signs: Last Vital Signs Temp 98.6 F 05/15/18 02:13 Pulse 79 05/15/18 02:13 Resp 16 05/15/18 02:13 BP 149/86 05/15/18 02:13 Pulse Ox 95 05/15/18 02:13 - Medical History PMH: No Chronic Diseases Denies: Chronic Kidney Disease - Surgical History Surgical History: Cholecystectomy - Family History Family History: States: Unknown Family Hx - Home Medications Home Medications: Ambulatory Orders Medication Instructions Recorded No Known Home Med 01/19/18 - Allergies Allergies/Adverse Reactions: Allergies Allergy/AdvReac Type Severity Reaction Status Date / Time No Known Allergies Allergy Verified 05/14/18 22:50 Review of Systems ROS Statement: Except As Marked, All Systems Reviewed And Found Negative Constitutional: Positive for: Weakness Physical Exam - Reviewed Nursing Documentation Reviewed: Yes Vital Signs Reviewed: Yes - Physical Exam Appears: Positive for: Well, Non-toxic, No Acute Distress Head Exam: Positive for: ATRAUMATIC, NORMAL INSPECTION, NORMOCEPHALIC Skin: Positive for: Normal Color Eye Exam: Positive for: Normal appearance ENT: Positive for: Normal ENT Inspection Cardiovascular/Chest: Positive for: Regular Rate, Rhythm Respiratory: Positive for: Normal Breath Sounds Gastrointestinal/Abdominal: Positive for: Normal Exam Back: Positive for: Normal Inspection Extremity: Positive for: Normal ROM Neurologic/Psych: Positive for: Alert, Oriented (x3). Negative for: Motor/ Sensory Deficits - Laboratory Results Result Diagrams: 05/15/18 00:05/15/18 00:01 - ECG ECG: Positive for: Viewed By Me (reviewed by ED attending) ECG Rhythm: Positive for: Sinus Rhythm O2 Sat by Pulse Oximetry: 98 - Progress ED Course And Treament: labs, urine, ekg, IV fluids On re-eval, patient states he is feeling better. VItals stable Patient educated on findings, discharged with instructions to follow up PMD 2-3 days Return precautions given Patient demonstrates full understanding of discharge instructions Patient requires no further intervention in ED and is stable for discharge at this time Disposition - Clinical Impression Clinical Impression: Generalized weakness, Near syncope - Patient ED Disposition Is Patient to be Admitted: No Counseled Patient/Family Regarding: Studies Performed, Diagnosis, Need For Followup - Disposition Disposition: Routine/Home Disposition Time: 01:59 Condition: IMPROVED Instructions: Near Fainting, Weakness (ED) Forms: [facility] (Macedonian)
[2018-05-15 01:50] LABS: URINE BILIRUBIN NEGATIVE (NEGATIVE); URINE BLOOD NEGATIVE (NEGATIVE); URINE CLARITY SLIGHTY-CLOUDY (Clear); URINE COLOR YELLOW (YELLOW); URINE GLUCOSE (UA) NEG (Normal); URINE LEUKOCYTE ESTERASE NEG Leu/uL (Negative); URINE PROTEIN 30 mg/dL (NEGATIVE)
[2018-05-15 02:13] VITALS: BP 149/86; PULSE 79; RESP 16; TEMP 98.6
[2018-05-15 02:30] VITALS: O2SAT 98
--- NOTE | 2018-05-15 09:08 | CARD ---
APPROVED REPORT Date of service: 05/14/2018 EKG Measurement Heart [id number] ID [id number] <Conclusion> Normal sinus rhythm Minimal voltage criteria for LVH, may be normal variant Cannot rule out Anterior infarct, age undetermined Abnormal ECG
== END 2018-05-15 02:10 | disposition home or self-care (01) ==
LOC: H.ER 22:46
DX: R53.1 Weakness (principal); R55 Syncope and collapse
CPT/HCPCS: 80053; 81003; 82948; 85025; 93005; 96360; 99284; J7030